=== PATIENT | female | born 1970 | race Caucasian/White ===

== ENCOUNTER → 2017-12-23 17:04 | Outpatient (CLI) | payer BC | END | disposition home or self-care (01) | LOC: D.CT 17:04 | DX: R06.02 Shortness of breath (principal) ==

== ENCOUNTER 2018-07-28 08:53 | Inpatient (IN) | payer BC ==
[~2018-07-28] VITALS: Ht 193 cm; Wt 68.3 kg
[2018-07-28] MEDS ORDERED: LANOXIN125 MCG PO (08:59)
[2018-07-28] MEDS ORDERED: TRADJENTA5 MG PO (09:00)
[2018-07-28] MEDS ORDERED: ZOVIRAX200 MG PO (09:00)
[2018-07-28] MEDS ORDERED: GLUCOTROL XL 1010 MG PO (09:00)
[2018-07-28] MEDS ORDERED: PEPCID AC20 MG PO (09:01)
[2018-07-28 09:35] LABS: BASOPHILS 0.4 % (0-2); EOSINOPHILS 3.3 % (0-7); HEMATOCRIT 36.6 % (36.0-48.0); HEMOGLOBIN 12.5 g/dL (12-16); IMMATURE GRANULOCYTES 0.1 % (0-5); LYMPHOCYTES 21.2 % (15-50); MCH 32.1 pg (26.0-34.0); MCHC 34.2 g/dL (31.0-37.0); MCV 94.1 fL (80.0-100.0); MEAN PLATELET VOLUME 9.5 fL (7.4-10.4); MONOCYTES 10.9 % (2-11); NEUTROPHILS 64.1 % (40-80); RBC 3.89 10x6/uL (4.00-5.40); RDW 12.4 % (11.5-14.5); WBC 7.5 10x3/uL (4.8-10.8)
[2018-07-28 09:42] LABS: PLATELET COUNT 236 10x3/uL (130-400)
[2018-07-28 09:50] LABS: ALBUMIN 3.3 g/dL (3.4-5.0); ALKALINE PHOSPHATASE 54 U/L (46-116); ALT (SGPT) 40 U/L (10-68); BILIRUBIN - TOTAL 0.46 mg/dL (0.2-1.3); CALC OSMOLALITY 280 mosm/kg (275-300); CALCIUM 8.8 mg/dL (8.5-10.1); CARBON DIOXIDE 27.2 mmol/L (21.0-32.0); CHLORIDE - SERUM 102 mmol/L (98-107); CREATININE - SERUM 0.7 mg/dL (0.6-1.3); GLUCOSE 180 mg/dL (74-106); POTASSIUM - SERUM 3.7 mmol/L (3.5-5.1); PROTEIN - SERUM 7.7 g/dL (6.4-8.2); SODIUM 139 mmol/L (136-145); UREA NITROGEN 6 mg/dL (7-18); eGFR NON AFRICAN AMERICAN > 90 mL/min (90-120)
[2018-07-28 09:58] LABS: INR 1.07 (0.85-1.17); PROTIME 13.5 SECONDS (11.6-15.0)
[2018-07-28 09:59] LABS: APTT 30.9 SECONDS (22.8-39.4)
[2018-07-28 10:00] LABS: D-DIMER-QUANTITATIVE 1.48 ug/mLFEU (0.20-0.54)
[2018-07-28 10:02] LABS: CKMB 1.5 U/L (0.0-3.6); CREATINE KINASE 723 UL (21-215)
[2018-07-28 10:04] LABS: TROPONIN-I < 0.017 ng/mL (0.000-0.060)
[2018-07-28 10:16] LABS: APPEARANCE CLEAR (CLEAR); BILIRUBIN NEGATIVE (NEGATIVE); COLOR YELLOW (YELLOW); GLUCOSE NEGATIVE (NEGATIVE); KETONE NEGATIVE (NEGATIVE); NITRITE NEGATIVE (NEGATIVE); PROTEIN NEGATIVE (NEGATIVE); UROBILINOGEN NORMAL (NORMAL)
[2018-07-28 10:46] VITALS: BP 122/70
[2018-07-28 14:40] VITALS: BP 108/60; Ht 193 cm; Wt 68.3 kg
[2018-07-28 15:00] VITALS: BP 108/60
[2018-07-28 16:10] LABS: CKMB 1.2 U/L (0.0-3.6); CREATINE KINASE 495 UL (21-215); TROPONIN-I < 0.017 ng/mL (0.000-0.060)
[2018-07-28 21:57] LABS: CREATINE KINASE 382 UL (21-215)
[2018-07-28 21:59] LABS: TROPONIN-I < 0.017 ng/mL (0.000-0.060)
[2018-07-28 22:50] VITALS: BP 107/56
[2018-07-29 03:06] LABS: BASOPHILS 0 % (0-2); EOSINOPHILS 0 % (0-7); HEMATOCRIT 32.2 % (36.0-48.0); IMMATURE GRANULOCYTES 0.2 % (0-5); LYMPHOCYTES 12.1 % (15-50); MCH 31.9 pg (26.0-34.0); MCHC 34.2 g/dL (31.0-37.0); MCV 93.3 fL (80.0-100.0); MEAN PLATELET VOLUME 9.9 fL (7.4-10.4); MONOCYTES 3.1 % (2-11); NEUTROPHILS 84.6 % (40-80); PLATELET COUNT 221 10x3/uL (130-400); RBC 3.45 10x6/uL (4.00-5.40); WBC 10.7 10x3/uL (4.8-10.8)
[2018-07-29 03:31] LABS: ALBUMIN 2.6 g/dL (3.4-5.0); ALKALINE PHOSPHATASE 47 U/L (46-116); ALT (SGPT) 30 U/L (10-68); BILIRUBIN - TOTAL 0.18 mg/dL (0.2-1.3); CALCIUM 8.3 mg/dL (8.5-10.1); CARBON DIOXIDE 27.9 mmol/L (21.0-32.0); CHLORIDE - SERUM 103 mmol/L (98-107); CKMB 0.9 U/L (0.0-3.6); CREATININE - SERUM 0.7 mg/dL (0.6-1.3); PROTEIN - SERUM 6.1 g/dL (6.4-8.2); SODIUM 137 mmol/L (136-145); eGFR NON AFRICAN AMERICAN > 90 mL/min (90-120)
[2018-07-29 03:32] LABS: CALC OSMOLALITY 281 mosm/kg (275-300); CREATINE KINASE 267 UL (21-215); GLUCOSE 254 mg/dL (74-106); TROPONIN-I < 0.017 ng/mL (0.000-0.060); UREA NITROGEN 10 mg/dL (7-18)
[2018-07-29 06:15] VITALS: BP 97/43
[2018-07-29 07:56] VITALS: BP 100/50
[2018-07-29 10:44] VITALS: BP 99/58
[2018-07-29 14:17] VITALS: BP 95/46
[2018-07-29 20:00] VITALS: BP 102/47
[2018-07-30 04:00] VITALS: BP 137/76
[2018-07-30 05:59] LABS: BASOPHILS 0.1 % (0-2); EOSINOPHILS 0.3 % (0-7); HEMATOCRIT 28.7 % (36.0-48.0); HEMOGLOBIN 9.7 g/dL (12-16); IMMATURE GRANULOCYTES 0.3 % (0-5); LYMPHOCYTES 25.4 % (15-50); MCH 31.5 pg (26.0-34.0); MCHC 33.8 g/dL (31.0-37.0); MCV 93.2 fL (80.0-100.0); MEAN PLATELET VOLUME 9.8 fL (7.4-10.4); MONOCYTES 5.2 % (2-11); NEUTROPHILS 68.7 % (40-80); PLATELET COUNT 207 10x3/uL (130-400); RBC 3.08 10x6/uL (4.00-5.40); RDW 12.4 % (11.5-14.5)
[2018-07-30 06:12] LABS: ALBUMIN 2.3 g/dL (3.4-5.0); ALKALINE PHOSPHATASE 42 U/L (46-116); ALT (SGPT) 28 U/L (10-68); BILIRUBIN - TOTAL 0.14 mg/dL (0.2-1.3); CALCIUM 7.9 mg/dL (8.5-10.1); CARBON DIOXIDE 27.6 mmol/L (21.0-32.0); CHLORIDE - SERUM 108 mmol/L (98-107); CREATININE - SERUM 0.7 mg/dL (0.6-1.3); POTASSIUM - SERUM 3.8 mmol/L (3.5-5.1); PROTEIN - SERUM 5.3 g/dL (6.4-8.2); SODIUM 141 mmol/L (136-145); UREA NITROGEN 12 mg/dL (7-18); eGFR NON AFRICAN AMERICAN > 90 mL/min (90-120)
[2018-07-30 06:15] LABS: CALC OSMOLALITY 282 mosm/kg (275-300); GLUCOSE 136 mg/dL (74-106)
[2018-07-30 06:20] LABS: WBC 14.7 10x3/uL (4.8-10.8)
[2018-07-30 08:19] VITALS: BP 98/52
[2018-07-30 11:42] VITALS: BP 105/51
[2018-07-30] MEDS ORDERED: FLORAJEN3 CAPS460 MG PO (11:55)
[2018-07-30] MEDS ORDERED: PREDNISONE10 MG PO (11:57)
== END 2018-07-30 14:10 | disposition home or self-care (01) | DRG 190 ==
LOC: D.ER 08:53 → D.EDHOLD 10:23 → D.M2 10:23
PROVIDERS: Family Medicine
DX: J44.0 Chronic obstructive pulmonary disease with (acute) lower respiratory infection (principal); J18.9 Pneumonia, unspecified organism; F17.213 Nicotine dependence, cigarettes, with withdrawal; E11.65 Type 2 diabetes mellitus with hyperglycemia; R00.0 Tachycardia, unspecified

== ENCOUNTER → 2018-08-05 13:36 | Outpatient (CLI) | payer BC ==
[2018-07-28 14:40] VITALS: BMI 17.8
[~2018-08-05 13:36] MED LIST: FLORAJEN3 CAPS460 MG PO; GLUCOTROL XL 1010 MG PO; LANOXIN125 MCG PO; PEPCID AC20 MG PO; PREDNISONE10 MG PO; TRADJENTA5 MG PO; ZOVIRAX200 MG PO
== END | disposition home or self-care (01) ==
LOC: D.CT 13:36
DX: J18.9 Pneumonia, unspecified organism (principal)

== ENCOUNTER 2018-10-05 08:00 | Outpatient (CLI) | payer BC ==
[2018-07-28 14:40] VITALS: BMI 17.8
== END 2018-10-05 09:00 | disposition home or self-care (01) ==
LOC: D.MAMMO 08:00
DX: Z12.31 Encounter for screening mammogram for malignant neoplasm of breast (principal)

== ENCOUNTER → 2018-12-01 19:26 | Outpatient (CLI) | payer BC ==
[2018-07-28 14:40] VITALS: BMI 17.8
== END | disposition home or self-care (01) ==
LOC: D.MAMMO 08:30
DX: R92.8 Other abnormal and inconclusive findings on diagnostic imaging of breast (principal)

== ENCOUNTER → 2020-05-03 08:44 | Outpatient (CLI) | payer BC ==
[2018-07-28 14:40] VITALS: BMI 17.8
--- NOTE | ~2020-05-03 | EC ---
PATIENT:TAMARA TAMAYO DATE OF SERVICE: 05/03/20 SEX: F MEDICAL RECORD: [id number] DATE OF : 68 LOCATION:[facility] AGE OF PATIENT: 50 ADMISSION DATE: 05/03/20 REFERRING PHYSICIAN: INTERPRETING PHYSICIAN: BLADE POP MD ECHOCARDIOGRAM REPORT ECHO CHARGES 4 ECHO COMPLETE Date: 05/03/20 CLINICAL DIAGNOSIS: HX OF PALPITATIONS/ ASSESS EF AND VALVES ECHOCARDIOGRAPHIC MEASUREMENTS (adult normal given) AC root (d.<3.7cm) 3.2 cm LV Septum d (<1.2 cm> 1.2 cm Valve Excursion 1.4 cm LV Septum (systole) 1.4 cm Left Atria (s.<4.0cm> 3.0 cm LVPW d(<1.2cm) 1.4 cm RV (d.<2.3cm) 3.5 cm LVPW (sytole) 1.6 cm LV diastole(<5.6CM) 4.4 cm MV E-F(>70mm/sec) cm LV systole 3.0 cm LVOT Diameter 1.9 cm MV exc.(>10mm) 2.0 cm Est.ejection fraction (50-75%) % DOPPLER: LVIT cm/sec A 63.0 cm/sec E 82.0 cm/sec LA cm/sec RVSP 28 mmHg LVOT 114 cm/sec AOP1/2T m/s Asc. Ao 136 cm/sec RVOT 86 cm/sec RA cm/sec PA 133 cm/sec AV Gradient Peak 7.41 mmHg AV Mean 3.75 mmHg AV Area 2.4 cm MV Gradient Peak 5.31 mmHg MV Mean 1.90 mmHg MV Area cm COMMENTS: Activities Assistant: 2 ANTONIO VALDES Roving Department End Finder: 3 Dr. Lopez TAPE# PACS Pericardial Effusion N DATE OF SERVICE: Adequate 2D, color flow imaging, spectral Doppler and M-mode. Borderline LVH. LV internal dimension is normal. Wall motion is normal. EF is greater than or equal to 55%. Aortic valve is tricuspid. No evidence of stenosis by Doppler interrogation. Left atrium is normal. Mitral valve shows no prolapse. Trace MR. Right-sided chambers are grossly normal. Trace TR. TRANSINT:[id number] Voice Confirmation ID: [id number] DOCUMENT ID: [id number] ECHOCARDIOGRAM REPORT [id number] TAMARA TAMAYO GREGORY A MD CC: [id number] DICTATION DATE: 05/04/20 1415 SYSTEMS TESTING LABORATORY TECHNICIAN: 05/04/20 2241 DEP CLI 05/03/20 [id number] [place] [address]
== END | disposition home or self-care (01) ==
LOC: D.HCCECHO 08:44
PROVIDERS: ATTEND Internal Medicine Interventional Cardiology
DX: R00.2 Palpitations (principal)